=== PATIENT | female | born 1965 | race Asian ===

== ENCOUNTER → 2021-10-17 | Outpatient (CLI) | payer BC ==
[2021-10-22 12:09] LABS: HPV 16 Negative (Negative); HPV 18 Negative (Negative); HPV OTHER HR TYPES Negative (Negative)
== END | disposition home or self-care (01) ==
LOC: LAB SHORT 14:00
PROVIDERS: Family Medicine
DX: N83.8 Other noninflammatory disorders of ovary, fallopian tube and broad ligament (principal)
CPT/HCPCS: 87624; G0123